=== PATIENT | male | born 1940 | race Caucasian/White ===

== ENCOUNTER → 2016-12-26 | Outpatient (CLI) | payer MEDICARE, MEDICAID ==
[~2016-12-26] MED LIST: CARB1TAB19 PO; GLIM1 PO; LISI-360 PO; METF500 PO; MOBI15TA PO; NORC5TAB PO; ZOCO40TA PO
[2016-12-26 10:54] LABS: ALKALINE PHOSPHATASE 115 U/L (45-117); ALT (GPT) 19 U/L (12-78); ANION GAP 10 MEQ/L (5-15); AST (GOT) 11 U/L (15-37); BICARBONATE 27.8 MEQ/L (21.0-32.0); BLOOD UREA NITROGEN 14 MG/DL (7-18); CHLORIDE 100 MEQ/L (98-107); GLOMERULAR FILTRATION RATE 52 ML/MIN (>89); GLUCOSE,FASTING 130 MG/DL (74-99); HDL CHOLESTEROL 40.8 MG/DL (40.0-60.0); LDL CHOLESTEROL 98 MG/DL (0-99); SODIUM (NA) 138 MEQ/L (136-145); TOTAL BILIRUBIN ADULT 0.5 MG/DL (0.2-1.0)
== END ==
LOC: CLAB 09:29
PROVIDERS: ATTEND Family Medicine
DX: E78.5 Hyperlipidemia, unspecified (principal)
CPT/HCPCS: 36415; 80053; 80061

== ENCOUNTER 2017-02-05 09:04 | Emergency (ER) | payer MEDICARE, MEDICAID ==
[~2017-02-05] VITALS: Ht 180.3 cm; Wt 80.0 kg
[~2017-02-05 09:04] MED LIST changes: -MOBI15TA PO; -NORC5TAB PO
[2017-02-05 09:06] VITALS: BP 144/82; PULSE 83; RESP 15; TEMP 98.2; O2SAT 95
[2017-02-05 09:30] VITALS: BP 118/69; PULSE 75; RESP 21; O2SAT 93
--- NOTE | 2017-02-05 10:58 | RADRPT ---
EXAM DATE/TIME: 02/05/2017 10:31 [facility] COMPARISON: No previous studies available for comparison. INDICATIONS : Left shoulder pain. No trauma. MEDICAL HISTORY : None. SURGICAL HISTORY : None. ENCOUNTER: Initial ACUITY: 2 days PAIN SCORE: 5/10 LOCATION: Left scapula FINDINGS: Two view examination of the left shoulder demonstrates no evidence of fracture or dislocation. Mild d egenerative changes. The glenohumeral and acromioclavicular joints are maintained. Bony mineralizat ion is normal. CONCLUSION: Mild degenerative changes without fracture.. Alok Sosa MD on February 05, 2017 at 10:55 Board Certified Radiologist. This report was verified electronically.
--- NOTE | 2017-02-05 10:59 | RADRPT ---
EXAM DATE/TIME: 02/05/2017 10:31 [facility] COMPARISON: No previous studies available for comparison. INDICATIONS : Right groin pain. No trauma. MEDICAL HISTORY : None. SURGICAL HISTORY : None. ENCOUNTER: Initial ACUITY: 2 days PAIN SCORE: 7/10 LOCATION: Right groin FINDINGS: Examination of the right hip was performed with AP Pelvis. The primary and secondary trabecular sherin danielito of the femoral neck is intact. Mild degenerative changes of both hips. No fracture. Phleboliths i n the pelvis . CONCLUSION: 1. Mild osteoarthritis of the right hip. No fracture. Alok Sosa MD on February 05, 2017 at 10:56 Board Certified Radiologist. This report was verified electronically.
[2017-02-05] MEDS ORDERED: NORC5TAB PO (11:34)
[2017-02-05] MEDS ORDERED: MOBI15TA PO (11:34)
--- NOTE | 2017-02-05 11:35 | PD ---
HPI Chief Complaint: Pain: Acute or Chronic Time Seen by Provider: 09:35 Travel History International Travel<30 days: No Contact w/Intl Traveler<30days: No Traveled to known affect area: No History of Present Illness HPI 77-year-old male complains of left shoulder pain and right groin pain. Patient states that she started having anterior right groin pain for the past 3 days. Patient started having aching pain was aspect left shoulder yesterday. Patient denies any recent injury. Patient denies any headache. Patient denies any chest pain or shortness of breath. Patient denies abdominal pain. Patient denies any dysuria or frequency. Patient denies any fever chills or back pain. Patient states the pain on the right groin is sharp pain is worse with movement of the left hip area. Patient denies any pain radiation. On a scale of 1-10 the pain is an 8. PFSH Past Medical History Cardiovascular Problems: Yes (4 BYPASS SURGERIES) Coronary Artery Disease: Yes Diabetes: Yes Patient Takes Glucophage: Yes Tetanus Vaccination: < 5 Years Influenza Vaccination: No Past Surgical History Coronary Artery Bypass Graft: Yes Social History Alcohol Use: No Tobacco Use: Yes Substance Use: No Allergies-Medications (Allergen,Severity, Reaction): Coded Allergies: No Known Allergies (Unverified , 08/05/16) Reported Meds & Prescriptions Reported Meds & Active Scripts Active Reported Amaryl (Glimepiride) 1 Mg Tab 1 Mg PO DAILYAC Lisinopril 10 mg (Lisinopril) 10 Mg Tab 1 Tab PO DAILY Carbidopa 25 mg (Carbidopa) 25 Mg Tab 1 Tab PO DAILY Glucophage 500 mg (Metformin HCl) 500 Mg Tab 500 Mg PO DAILY Zocor 40 mg (Simvastatin) 40 Mg Tab 1 Tab PO HS Review of Systems General / Constitutional: No: Fever Eyes: No: Visual changes HENT: No: Headaches Cardiovascular: No: Chest Pain or Discomfort Respiratory: No: Shortness of Breath Gastrointestinal: No: Abdominal Pain Genitourinary: No: Dysuria Musculoskeletal: Positive: Pain Skin: No Rash Neurologic: No: Weakness Psychiatric: No: Depression Endocrine: No: Polydipsia Hematologic/Lymphatic: No: Easy Bruising Physical Exam Narrative GENERAL: Well-nourished, well-developed patient. SKIN: Warm and dry. HEAD: Normocephalic. EYES: No scleral icterus. No injection or drainage. NECK: Supple, trachea midline. No JVD or lymphadenopathy. CARDIOVASCULAR: Regular rate and rhythm without murmurs, gallops, or rubs. RESPIRATORY: Breath sounds equal bilaterally. No accessory muscle use. GASTROINTESTINAL: Abdomen soft, non-tender, nondistended. MUSCULOSKELETAL: Patient has moderate tenderness on palpation anterior aspect of the right hip, right groin area. No lymphadenopathy noted. No evidence of hernia. No redness no heat no rash noted. Full range of motion of the right hip joint. Patient has mild to moderate tenderness on palpation posterior aspect left shoulder joint. Full range of motion of left shoulder. No redness no heat noted. BACK: Nontender without obvious deformity. No CVA tenderness. Neurologic exam normal. Data Data Last Documented VS Vital Signs Date Time Temp Pulse Resp B/P Pulse Ox O2 Delivery O2 Flow Rate FiO2 02/05/17 09:30 75 21 118/69 93 Room Air 02/05/17 09:06 98.2 Orders Hip, Uni(Ap&Lat) W Ap Pelvis (02/05/17 10:10) Shoulder, Limited(2vws) (02/05/17 10:10) MDM Medical Decision Making Medical Screen Exam Complete: Yes Emergency Medical Condition: Yes Interpretation(s) 11:31 AM. X-ray right hip shows mild osteoarthritis. No acute bony injury. X- ray left shoulder shows mild DJD changes. No acute bony injury. Differential Diagnosis Differential diagnosis including strain, tendinitis, bursitis, hernia, lymphadenitis. Narrative Course 77-year-old male with left shoulder pain and right groin pain. Nontraumatic. No evidence of infection or hernia. Diagnosis Primary Impression: Arthralgia of right hip Additional Impression: Arthralgia of left shoulder region Patient Instructions: General Instructions Additional Instructions: Take medications as needed for pain. Follow-up with orthopedist if persistent problem. Return if worse. Med/Other Pt SpecificInfo: Prescription(s) given Scripts Hydrocodone-Acetaminophen ([place])5-325 mg Tab1 Tab PO Q6H PRN (PAIN) #20 TAB Prov:Artemio Newell MD 02/05/17 Meloxicam (Mobic)15 Mg Tab15 Mg PO DAILY #20 TAB Prov:Artemio Newell MD 02/05/17 Disposition: 01 DISCHARGE HOME Condition: Stable Artemio Newell MD Feb 05, 2017 11:35
== END 2017-02-05 11:51 | disposition home or self-care (01) ==
LOC: NEPA 09:04
DX: M25.512 Pain in left shoulder (principal); M25.551 Pain in right hip; E11.9 Type 2 diabetes mellitus without complications; I25.10 Atherosclerotic heart disease of native coronary artery without angina pectoris; Z72.0 Tobacco use
CPT/HCPCS: 73030; 73502; 99283